=== PATIENT | female | born 1960 | race African-American/Black ===

== ENCOUNTER 2018-04-21 14:00 | Outpatient (CLI) | payer BC, OTHER ==
[~2018-04-21 14:00] MED LIST: Iopamidol 370 76% 100 ML VIAL ONE
== END 2018-04-21 14:01 | disposition home or self-care (01) ==
LOC: BICCT 14:00
PROVIDERS: ATTEND Family Medicine
DX: K42.9 Umbilical hernia without obstruction or gangrene (principal); N20.0 Calculus of kidney
CPT/HCPCS: 74160

== ENCOUNTER 2018-05-05 13:33 | Outpatient (CLI) | payer BC | END 2018-05-05 13:34 | disposition home or self-care (01) | LOC: BICMAMMO 13:33 | PROVIDERS: ATTEND Obstetrics & Gynecology | DX: Z12.31 Encounter for screening mammogram for malignant neoplasm of breast (principal) | CPT/HCPCS: 77063; 77067 ==

== ENCOUNTER 2018-11-20 07:33 | Outpatient (CLI) | payer OTHER ==
--- NOTE | 2018-11-20 09:48 | CT ---
CT OF ABDOMEN AND PELVIS PERFORMED WITH INTRAVENOUS CONTRAST ENHANCEMENT: History: Abdominal pain, history of umbilical hernia surgery in May. Pain ever since. Comparison: 04-21-18 CT examination. FINDINGS: The lung bases show some chronic appearing change. The liver, spleen, pancreas, and gallbladder regions appear unremarkable. Right and left adrenal glands and right and left kidneys are nonobstructed. There is an approximately 4-5 mm nonobstructing lower pole left renal calculus noted. There is no significant periaortic or me senteric lymphadenopathy. No signs of an abdominal wall hernia. CT OF PELVIS PERFORMED WITH CONTRAST ENHANCEMENT: A calcified uterine fibroid is identified. The appendix region appears unremarkable. There is no sign ificant adenopathy or mass. IMPRESSION: 1. No acute abnormalities of the abdomen and pelvis. 2. Nonobstructing lower pole left renal calculus. 3. Calcified uterine fibroid. POS: ESTHER
[2018-11-20] MEDS ORDERED: ISOVUE-370 76%-LOCM 1 ML ONE (10:06)
== END 2018-11-20 07:34 | disposition home or self-care (01) ==
LOC: BICCT 07:33
DX: R10.9 Unspecified abdominal pain (principal); D25.9 Leiomyoma of uterus, unspecified; N20.0 Calculus of kidney
CPT/HCPCS: 74177

== ENCOUNTER 2019-05-14 13:05 | Outpatient (CLI) | payer BC ==
--- NOTE | 2019-05-14 14:36 | MMO ---
Bilateral MAMMO Bilat Screen [facility]. CLINICAL HISTORY: Patient is 58 years old and is seen for screening. The patient has no family history of breast cancer. The patient has no personal history of cancer. VIEWS: The views performed were: bilateral craniocaudal with tomosynthesis and bilateral mediolateral oblique with tomosynthesis. FILMS COMPARED: The present examination has been compared to prior imaging studies performed at [facility] on 11/16/2014, 12/29/2015, 01/06/2017 and 05/05/2018. MAMMOGRAM FINDINGS: There are scattered fibroglandular densities. There are stable benign appearing calcifications seen in both breasts. There are no suspicious masses, suspicious calcifications, or new areas of architectural distortion. IMPRESSION: THERE IS NO MAMMOGRAPHIC EVIDENCE OF MALIGNANCY. A ROUTINE FOLLOW-UP MAMMOGRAM IN 1 YEAR IS RECOMMENDED. THE RESULTS OF THIS EXAM WERE SENT TO THE PATIENT. ACR BI-RADS Category 2 - Benign finding MAMMOGRAPHY NOTE: 1. A negative mammogram report should not delay a biopsy if a dominant of clinically suspicious mass is present. 2. Approximately 10% to 15% of breast cancers are not detected by mammography. 3. Adenosis and dense breasts may obscure an underlying neoplasm. Reported by: CLARENCE CAIN MD Electonically Signed: [id number]
== END 2019-05-14 13:06 | disposition home or self-care (01) ==
LOC: BICMAMMO 13:05
PROVIDERS: ATTEND Obstetrics & Gynecology
DX: Z12.31 Encounter for screening mammogram for malignant neoplasm of breast (principal)
CPT/HCPCS: 77063; 77067

== ENCOUNTER 2019-06-29 07:17 | Day surgery (SDC) | payer OTHER ==
[2019-06-29] MEDS ORDERED: Bupivacaine/Epinephrine 0.25% 30 ML VIAL ONE (07:37)
[2019-06-29] MEDS ORDERED: Lidocaine 1% (PF) 30 ML VIAL ONE (07:37)
[2019-06-29] MEDS ORDERED: Lidocaine 1% w/Epinephrine 1:100K 20 ML VIAL ONE (07:46)
[2019-06-29] MEDS ORDERED: Fentanyl 100 MCG/2 ML VIAL ONE (07:54)
[2019-06-29 08:19] LABS: Anion Gap 13 mmol/L (10-20); BUN (Urea Nitrogen) 15 mg/dL (9.8-20.1); Calc. Creatinine Clearance 0 mL/min (70-130); Calcium 9.5 mg/dL (7.8-10.44); Carbon Dioxide 23 mmol/L (22-29); Chloride 107 mmol/L (98-107); Estimated GFR-MDRD Greater than 90; Glucose 105 mg/dL (70-105); Potassium 3.9 mmol/L (3.5-5.1); Sodium 139 mmol/L (136-145)
--- NOTE | 2019-06-29 09:25 | OP ---
DATE OF PROCEDURE: 06/29/2019 PREOPERATIVE DIAGNOSIS: Left-sided carpal tunnel syndrome. POSTOPERATIVE DIAGNOSIS: Left-sided carpal tunnel syndrome. PROCEDURE PERFORMED: Left open carpal tunnel release. PROGRAM PROFESSIONAL: Please see operative record. TOURNIQUET TIME: 9 minutes. ANESTHESIA: Local with general. FINDINGS: Hyperemic, left median nerve, tight carpal canal, thickened transverse carpal ligament. ESTIMATED BLOOD LOSS: Less than 10 mL. CONDITION: Stable. INDICATIONS FOR PROCEDURE: The patient is a 58-year-old female, who presented to my clinic with symptoms of left hand numbness and tingling relating to her left thumb, index, and middle fingers. Her symptoms were refractory to wrist splint using gase-tap-wphiemt anti-inflammatories. She had nerve studies, which showed left-sided carpal tunnel syndrome. We discussed surgical and nonsurgical treatment options, she elected for surgery. She discussed all risks and goals associated with surgery. I had discussion with the patient and her family at bedside and she opted to undergo a left open carpal tunnel release, therefore she was given preoperative antibiotic. DESCRIPTION OF PROCEDURE: She provided informed signed consent and then she was transferred to the operating room and placed supinely on the operating room table. Time-out was performed. General anesthesia was induced by the Anesthesia Team. The left upper extremity tourniquet was applied. The left upper extremity was prepped and draped under sterile aseptic conditions. The second time-out was performed. The left palm skin was then prepped using alcohol and then tumescent local anesthetic was then infiltrated in the skin using 1% lidocaine with epinephrine 1:100,000 parts. The left upper extremity was exsanguinated using an Esmarch wrap and the tourniquet was inflated 250 mmHg. She had a nice skin crease in line with fourth metacarpal ray, which was utilized for the incision and a 15-blade scalpel was used to incise the skin longitudinally. Blunt dissection was carried out to the palmar subcutaneous fat through the palmar fascia down in the transverse carpal ligament using tenotomy scissors. Self-retaining retractor was then applied in order to facilitate exposure of the transverse carpal ligament. A 15-blade scalpel was then used to incise the transverse carpal ligament longitudinally. Care was taken to avoid any injury to the underlying median nerve. The median nerve was visualized, it appeared to be hyperemic. Transverse carpal ligament was thick. The mosquito clamp was advanced underneath the transverse carpal ligament distally and the clamped tips were gently spread as the 15-blade scalpel was then used to release transverse carpal ligament completely distally in full-thickness. Care was taken to avoid passing beyond the clamp tips in order to avoid injury to the underlying median nerve and also not to go beyond Eason's cardinal line in order to avoid injury to the arterial arch systems and full-thickness release was achieved. Carpal canal was noted to be tight. The mosquito clamp was repositioned under the transverse carpal ligament proximally and it was released in similar fashion. The Metzenbaum scissors were then used to release the antebrachial fascia and the distal forearm overlying the median nerve. Care was taken to avoid any injury to the median nerve and its palmar cutaneous nerve branch. Good release was achieved. The wound was irrigated thoroughly. Some additional local anesthetic was infiltrated into the skin and the skin incision was primarily repaired using 4-0 nylon suture. All fingers resumed a normal pink color with good refill after the tourniquet was deflated. Xeroform was applied over the wound along with bulky dressing and Timothy wrap. The patient was extubated and transported back to the recovery area in stable condition. She will take [place] 5/325 one to two tablets p.o. q.6 hours p.r.n. pain., 30 pills were prescribed. I will see her back in about a week. She was given a home exercise program for finger and wrist range of motion. Then, instructed to remain nonweightbearing and avoid pushing or pulling activities for a total of 3 to 4 weeks regarding the use of her left hand and wrist postoperatively. Job ID: [id number]
--- NOTE | 2019-07-01 16:43 | EKG ---
Test Reason : PREOP Blood Pressure : / mmHG Vent. Rate : 073 BPM Atrial Rate : 073 BPM P-R Int : 152 ms QRS Dur : 084 ms QT Int : 392 ms P-R-T Axes : 058 -21 058 degrees QTc Int : 431 ms Normal sinus rhythm Possible Inferior infarct , age undetermined Abnormal ECG Confirmed by BURTON ARVIZU ([id number]) on 07/01/2019 4:42:27 PM Referred By: PAN Confirmed By:BURTON ARVIZU
== END 2019-06-29 10:15 | disposition home or self-care (01) ==
LOC: EEVIPCON 07:17 → SDC 07:17
PROVIDERS: ATTEND Surgery Surgery of the Hand
PROC: 01N50ZZ Release Median Nerve, Open Approach (ICD-10-PCS; principal; 2019-06-29)
DX: G56.03 Carpal tunnel syndrome, bilateral upper limbs (principal); M18.0 Bilateral primary osteoarthritis of first carpometacarpal joints; I10 Essential (primary) hypertension; F17.210 Nicotine dependence, cigarettes, uncomplicated; Z79.899 Other long term (current) drug therapy
CPT/HCPCS: 80048; 93005; 93010; J0690; J2001; J3010

== ENCOUNTER 2019-08-09 06:52 | Day surgery (SDC) | payer OTHER ==
[2019-08-06 12:21] VITALS: BMI 175.8
[2019-08-09 08:04] LABS: Anion Gap 15 mmol/L (10-20); BUN (Urea Nitrogen) 15 mg/dL (9.8-20.1); Calc. Creatinine Clearance 103 mL/min (70-130); Calcium 9.7 mg/dL (7.8-10.44); Carbon Dioxide 23 mmol/L (22-29); Chloride 105 mmol/L (98-107); Estimated GFR-MDRD 87; Glucose 92 mg/dL (70-105); Potassium 4.2 mmol/L (3.5-5.1); Sodium 139 mmol/L (136-145)
[2019-08-09] MEDS ORDERED: Bupivacaine 0.25% HCL 30 ML VIAL ONE (09:22)
[2019-08-09] MEDS ORDERED: Lidocaine 1% w/Epinephrine 1:100K 20 ML VIAL ONE (09:22)
[2019-08-09] MEDS ORDERED: Propofol 500 MG/50 ML VIAL ONE (09:26)
[2019-08-09] MEDS ORDERED: Meperidine HCl/PF 25 MG/ML VIAL ONE (09:39)
--- NOTE | 2019-08-09 11:51 | OP ---
DATE OF PROCEDURE: 08/09/2019 PREOPERATIVE DIAGNOSIS: Right-sided carpal tunnel syndrome. POSTOPERATIVE DIAGNOSIS: Right-sided carpal tunnel syndrome. PROCEDURE PERFORMED: Right open carpal tunnel release. SENIOR FINANCIAL CONSULTANT: Please see operative record. ANESTHESIA: Conscious sedation with local anesthetic. TOURNIQUET TIME: 12 minutes. ESTIMATED BLOOD LOSS: Less than 10 mL. FINDINGS: Thickened transverse carpal ligament, tight carpal canal, and hyperemic median nerve. IMPLANTS: None. CONDITION: Stable. INDICATIONS FOR PROCEDURE: The patient is a 58-year-old female, who is a known patient of mine, suffers from right-sided carpal tunnel syndrome. She underwent a previous left open carpal tunnel release by my early this year and recovered well from that surgery. She was requesting surgery for treatment of her right-sided carpal tunnel syndrome, which appears to be refractory to wrist splint use and kiuj-agi-fmcqtyy anti-inflammatories. All risks and goals associated with the procedure were discussed by me with the patient. She voiced understanding and agreed to proceed. I also had a discussion with the patient's this morning at bedside. He voiced understanding and agreed to proceed as well. DESCRIPTION OF PROCEDURE: The patient was brought to the operating room and placed supinely on the operating room table. Time-out was performed. Antibiotics were administered. A right upper extremity tourniquet was applied. Conscious sedation was administered by the Anesthesia Team. The right palm was prepped using ChloraPrep and then tumescent local anesthetic was infiltrated in the skin overlying the right palm in the area of predicted skin incision. The right upper extremity was then prepped and draped under sterile aseptic condition. A second time-out was performed. The right upper extremity was exsanguinated using an Esmarch wrap and the tourniquet was inflated to 250 mmHg. A 15-blade scalpel was then used to make an incision within a natural skin crease, inline with fourth metacarpal ray and inline with the carpal tunnel. Care was taken only to go skin deep and avoid crossing beyond the volar wrist flexion crease. Blunt dissection was carried out down to the palmar fat to the palmar fascia, down to the transverse carpal ligament using tenotomy scissors. A self-retaining retractor was applied in order to facilitate exposure and visualization of the transverse carpal ligament. A fresh 15-blade scalpel was then used to make a longitudinal incision into the transverse carpal ligament. Care was taken to avoid any injury to the underlying median nerve. The median nerve was visualized, it appeared to be hyperemic. Transverse carpal ligament was noted to be thick. A mosquito clamp was positioned underneath the transverse carpal ligament distally and overlying the median nerve, and the clamp tips were gently spread as the 15-blade scalpel was used to release transverse carpal ligament in full thickness distally. Care was taken to avoid passing beyond the clamp tips points in order to avoid injury to the median nerve and also to avoid injury to the arterial arch system. Good full-thickness release was achieved distally, and the mosquito clamp was repositioned under the remaining portion of the transverse carpal ligament proximally. It was released in similar fashion, and Metzenbaum scissors were then used to release the antebrachial fascia overlying the median nerve in the distal forearm. Care was taken to avoid injury to the median nerve and to the palmar cutaneous nerve branch. Good release was achieved. The wound was irrigated thoroughly. Some additional local anesthetic was infiltrated into the skin to help with postoperative pain. Xeroform was applied over the wound after the incision was repaired using 4-0 nylon sutures. The tourniquet was deflated during skin closure. The total tourniquet time was 12 minutes. All fingers resumed a normal pink color with good refill after the tourniquet was deflated. Again, Xeroform was applied over the wound along with bulky dressing and an Timothy wrap. The patient was transported back to the recovery area in stable condition and tolerated the procedure well. She was discharged home on [place] 5/325 one to two tablets p.o. q.6 hours, 30 pills were prescribed. I will see her back in the clinic in about 1 week. She will begin hand therapy in 3 to 4 days for active and passive range of motion of the fingers exercises and to help with wound care. Job ID: [id number]
== END 2019-08-09 11:20 | disposition home or self-care (01) ==
LOC: SDC 06:52
PROVIDERS: ATTEND Surgery Surgery of the Hand
PROC: 01N50ZZ Release Median Nerve, Open Approach (ICD-10-PCS; principal; 2019-08-09)
DX: G56.01 Carpal tunnel syndrome, right upper limb (principal); I10 Essential (primary) hypertension; Z79.899 Other long term (current) drug therapy
CPT/HCPCS: 80048; 93005; 93010; J0690; J2175; J2704; S0020

== ENCOUNTER 2020-05-17 15:09 | Outpatient (CLI) | payer BC ==
--- NOTE | 2020-05-17 15:51 | MMO ---
Bilateral MAMMO Bilat Screen [facility]. CLINICAL HISTORY: Patient is 59 years old and is seen for screening. The patient has no family history of breast cancer. The patient has no personal history of cancer. VIEWS: The views performed were: bilateral craniocaudal with tomosynthesis and bilateral mediolateral oblique with tomosynthesis. FILMS COMPARED: The present examination has been compared to prior imaging studies performed at [facility] on 12/29/2015, 01/06/2017, 05/05/2018 and 05/14/2019. This study has been interpreted with the assistance of computer-aided detection. MAMMOGRAM FINDINGS: There are scattered fibroglandular densities. There are no suspicious masses, suspicious calcifications, or new areas of architectural distortion. IMPRESSION: THERE IS NO MAMMOGRAPHIC EVIDENCE OF MALIGNANCY. A ROUTINE FOLLOW-UP MAMMOGRAM IN 1 YEAR IS RECOMMENDED. THE RESULTS OF THIS EXAM WERE SENT TO THE PATIENT. ACR BI-RADS Category 1 - Negative MAMMOGRAPHY NOTE: 1. A negative mammogram report should not delay a biopsy if a dominant of clinically suspicious mass is present. 2. Approximately 10% to 15% of breast cancers are not detected by mammography. 3. Adenosis and dense breasts may obscure an underlying neoplasm. Reported by: ANDERS KEVIN MD Electonically Signed: [id number]
== END 2020-05-17 15:10 | disposition home or self-care (01) ==
LOC: BICMAMMO 15:09
PROVIDERS: ATTEND Obstetrics & Gynecology
DX: Z12.31 Encounter for screening mammogram for malignant neoplasm of breast (principal)
CPT/HCPCS: 77063; 77067

== ENCOUNTER 2022-05-15 15:25 | Outpatient (CLI) | payer BC | END 2022-05-15 15:26 | disposition home or self-care (01) | LOC: BICMAMMO 15:25 | PROVIDERS: ATTEND Obstetrics & Gynecology | DX: Z12.31 Encounter for screening mammogram for malignant neoplasm of breast (principal) | CPT/HCPCS: 77063; 77067 ==

== ENCOUNTER 2022-08-29 04:30 | Emergency (ER) | payer BC ==
[2022-08-29] MEDS ORDERED: Orphenadrine Citrate 60 MG/2 ML VIAL ONE (05:07)
== END 2022-08-29 06:39 | disposition home or self-care (01) ==
LOC: ERS 04:30
DX: M54.50 Low back pain, unspecified (principal); I10 Essential (primary) hypertension; E78.00 Pure hypercholesterolemia, unspecified; F17.210 Nicotine dependence, cigarettes, uncomplicated
CPT/HCPCS: 96372; 99283; J2360

== ENCOUNTER 2022-09-24 16:33 | Outpatient (CLI) | payer BC | END 2022-09-24 16:34 | disposition home or self-care (01) | LOC: SCSRAD 16:33 | PROVIDERS: ATTEND Family Medicine | DX: M47.26 Other spondylosis with radiculopathy, lumbar region (principal) | CPT/HCPCS: 72100 ==

== ENCOUNTER 2023-07-03 14:49 | Outpatient (CLI) | payer BC | END 2023-07-03 14:50 | disposition home or self-care (01) | LOC: BICMAMMO 14:49 | PROVIDERS: ATTEND Family Medicine | DX: Z12.31 Encounter for screening mammogram for malignant neoplasm of breast (principal) | CPT/HCPCS: 77063; 77067 ==